=== PATIENT | male | born 1960 | race Caucasian/White ===

== ENCOUNTER 2017-05-26 10:10 | Emergency (ER) | payer BC ==
[~2017-05-26] VITALS: Ht 182.9 cm; Wt 90.7 kg
--- OUTSIDE RECORDS SUMMARY | 2017-05-26 10:16 | External Medical Summary Rpt | CCD ---
Author Author , VERN PORRAS Address Unknown Phone [email or web address] Purpose Continuity of Care Document - through 2016
--- OUTSIDE RECORDS SUMMARY | 2017-05-26 10:16 | External Medical Summary Rpt | CCD ---
Author Author [employer] Organization [employer] Address Unknown Phone Unavailable Purpose Continuity of Care Document - through 2016
--- OUTSIDE RECORDS SUMMARY | 2017-05-26 10:16 | External Medical Summary Rpt | CCD ---
Author Author , VERN PORRAS Address Unknown Phone [email or web address] Purpose Continuity of Care Document - through 2016
--- OUTSIDE RECORDS SUMMARY | 2017-05-26 10:17 | External Medical Summary Rpt | CCD ---
Demographics Preferred Language Nicaraguan Marital Status Unknown Advent Affiliation Unknown Race Unknown Ethnic Group Unknown Author Author , VERN PORRAS Address Unknown Phone Immunization Unable to retrieve immunization data due to connection failure with Immunization Registry. Please try again later.
--- OUTSIDE RECORDS SUMMARY | 2017-05-26 10:17 | External Medical Summary Rpt | CCD ---
Demographics Preferred Language [place] Verdean Marital Status Unknown Rastafari Affiliation Unknown Race Unknown Ethnic Group Unknown Author Author , VERN PORRAS Address Unknown Phone Immunization Unable to retrieve immunization data due to connection failure with Immunization Registry. Please try again later.
--- OUTSIDE RECORDS SUMMARY | 2017-05-26 10:18 | External Medical Summary Rpt ---
Author Author VERN Melgar, [employer] Organization [employer] Address Unknown Phone Unavailable
--- NOTE | 2017-05-26 10:32 | Urgent Treatment Center Report ---
History of Present Issue Date/Time Seen by Provider 05/26/17 1028 Visit Reason Pt arrived:Walked Presenting Problem:PT C/O OF HEART BURN Location if Accident: Onset of symptoms date/time:/ or onset unknown for:MEDICAL HX UNKNOWN Have you (or family members/close friends) recently traveled outside the [place]? N If Yes, where/when: Have you had exposure to infectious disease within the past month? TB? Other? Specify: Source patient, RN notes reviewed Exam Limitations no limitations Comment 56-year-old male presents today with complaints of heartburn for 3 or 4 days with no improvement with [id number] medicine. Patient states she is unable to lay down due to the heartburn, nothing to his throat. Patient reports no cardiac history but did report food poisoning the last of March. Last EGD and colonoscopy last year per patient ALLERGIES Coded Allergies: No Known Allergies (12/03/15) History Medical History General CAD? No Angina: No NH: No Hypertension? No Hyperlipidemia? No CHF? No DVT? No PE? No COPD? No Asthma? No Anemia? No GERD? No Gastric ulcers? No GI Bleed? No Hernia? No Thyroid Problems? No Hypothyroidism? No CVA? No Seizures? No Diabetes? No Renal Insuffiency? No UTI? No Stones? No BPH? No GB Disease: No Nephritic Syndrome? No Asplenia? No Hepatitis? No Sickle Cell Disease? No Arthritis? No Migraines? No Cataracts? No Glaucoma? No MRSA? No HIV? No TB? No Anxiety? No Depression? No Cancer? No Site: N More? No Immunization HX DT/Tetanus Unknown Surgical Hx Previous Surgery?Y KNEE ACL REPAIR Social History Smoking Hx Smoker: Current Every Day Smoker Tobacco: Yes Type Cigarettes Packs/day 1 1/2 - 2 Packs Alcohol Alcohol: No Review of Systems All Other Systems Reviewed and Negative Gastrointestinal see HPI, abdominal pain Physical Exam Vital Signs Vital Signs Date Time Temp Pulse Resp B/P Pulse O2 O2 Flow FiO2 Ox Delivery Rate 05/26 1015 98.3 77 20 146/94 96 General Appearance normal appearance, mild distress Eye Exam - bilateral eye normal exam, bilateral eye PERRL, bilateral eye EOMI Ear, Nose, Throat hearing grossly normal, normal ENT inspection, normal pharynx Neck normal inspection, full range of motion Respiratory Status Yes: trachea midline, chest symmetrical, non tender chest. No: respiratory distress. Lung Sounds bilateral: normal breath sounds, lungs clear. Cardiovascular normal exam, regular rate/rhythm, no peripheral edema, no gallop, no murmur Gastrointestinal normal bowel sounds, normal exam, non tender, soft Neurologic alert, normal exam, oriented x 3 Medical Decision Making LABS/Meds/Orders Pt receiving controlled substance in ED? No Results/Orders Laboratory Tests 05/26/17 1035: Sodium 139, Potassium 4.2, Chloride 107, Carbon Dioxide 23, BUN 19 H, Creatinine 0.8, Estimated Creat Clear 131, Estimated GFR (MDRD) 100, Glucose 111 H, Calcium 8.4 L, Total Bilirubin 0.5, AST 16, ALT 25, Alkaline Phosphatase 64 , Creatine Kinase 40, CK-MB (CK-2) Rel Index 1.3, CK and CKMB Interp 0.5, Troponin I < 0.02, Total Protein 6.8, Albumin 3.6, Globulin 3.2, Albumin/ Globulin Ratio 1.1, WBC 3.6 L, RBC 5.19, Hgb 16.1, Hct 47.3, MCV 91.1, RDW 13.4 , Plt Count 198, MPV 8.8, Gran % 54.7, Gran # 2.0, Lymphocytes % 29.7, Monocytes % 11.6 H, Eosinophils % 3.3, Basophils % 0.6, Lymphocytes # 1.1, Monocytes # 0.4, Eosinophils # 0.1, Basophils # 0.0, PUBS MCHC 34.0, MCH 31.0 Current Medication Orders Sig/Nabil Start time Last Medication Dose Route Stop Time Status Admin Aspirin 325 MG ONCE ONE 05/26 1100 DC 05/26 PO 05/26 1101 1059 Multi-Ingredient GI 60 ML ONCE ONE 05/26 1100 DC 05/26 Drug PO 05/26 1101 1100 Aspirin 0 .STK-MED ONE 05/26 1057 DC .ROUTE Multi-Ingredient GI 0 .STK-MED ONE 05/26 1052 DC Drug PO Orders Procedure Date/time Status ELECTROCARDIOGRAM REQUEST 05/26 1027 Active CBC WITH AUTO DIFF 05/26 1027 Complete CARDIAC ENZYMES 05/26 1027 Complete CHEM 12 PROFILE 05/26 1027 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 Alfonso Consult Physician Consult Consult/PCP stefan Time Called 1054 Reason Pt. Condition Comments recommends gi cocktail, asa and cardiac workup Progress [facility] Progress Notes Date 05/26/17 Time 1116 Comment pt states feeling better Departure Departure Time of Disposition 1146 Disposition DC Home or Self Care(routine) Clinical Impression Primary Impression: Gastroesophageal reflux disease Qualifiers: Esophagitis presence: esophagitis presence not specified Qualified Code: K21.9 - Gastro-esophageal reflux disease without esophagitis Condition STABLE Referrals [facility] VARGAS,A.C. Patient Instructions DI for Gastroesophageal Reflux Disease (GERD), GERD Diet Additional Instructions Follow-up with primary care this week for possibility of an EGD If symptoms worsen or do not improve return or be seen in the ER Morrison diet Discharge Counseling Counseled pt/family regarding diagnosis, test results, medications/RX, home care, follow up needs Prescriptions Current Visit Scripts Ranitidine Hcl (Zantac) 150 MG PO BID 7 Days Sucralfate (Carafate Oral Susp) 1 GM PO ACHS 7 Days at 1152
[2017-05-26 11:13] LABS: HEMOGLOBIN 16.1 g/dL (14.1-18.0); LYMPH # 1.1 K/mm3 (0.7-4.5); LYMPH % 29.7 % (10-50)
[2017-05-26 11:29] LABS: BUN 19 mg/dL (7-18)
[2017-05-26 11:31] LABS: GFR (ESTIMATED) 100 ML/MIN (>60)
[2017-05-26] MEDS ORDERED: CARAFATE1 GM/10 ML PO (11:49)
[2017-05-26] MEDS ORDERED: ZANTAC 150150 MG PO (11:49)
[2017-05-26 11:52] VITALS: BP 146/94
== END 2017-05-26 11:54 | disposition home or self-care (01) ==
LOC: UTC 10:10
PROVIDERS: Nurse Practitioner Family
DX: K21.9 Gastro-esophageal reflux disease without esophagitis (principal); F17.210 Nicotine dependence, cigarettes, uncomplicated